=== PATIENT | male | born 2000 | race Caucasian/White ===

== ENCOUNTER 2022-12-17 10:36 | Emergency (ER) | payer BC, SELFPAY ==
--- NOTE | ~2022-12-17 | XR_ITS ---
EXAMINATION: XR hand RT 2V DATE: 12/17/2022 11:45 INDICATION: Laceration to the right index digit TECHNIQUE: Posteroanterior and lateral views of the right hand were obtained. COMPARISON: None. FINDINGS: Alignment is normal. No fracture. Joint spaces are normal. Soft tissues are unremarkable. No soft tis olvin gas or radiopaque foreign bodies. IMPRESSION: 1. No osseous abnormality or radiopaque foreign bodies. Reviewed, dictated and finalized at location A.
[2022-12-17 10:48] VITALS: BP 148/85; PULSE 83; RESP 16; TEMP 36.2; O2SAT 99
[2022-12-17 11:00] VITALS: BP 147/83; PULSE 73; RESP 18; TEMP 36.6; O2SAT 98
--- NOTE | 2022-12-17 11:54 | ED.GENADULT ---
HPI - General Adult General Chief complaint: Wound/Laceration Stated complaint: Right index finger laceration Time Seen by Provider: 12/17/22 11:06 Source: patient Mode of arrival: ambulatory Limitations: no limitations History of Present Illness HPI narrative: This is a 22-year-old male who presents to the ED with chief complaint of right index finger abrasion occurring just prior to arrival. Patient states that he was moving a door when it slipped off the hand and cut his finger. He states he had a tough time controlling the bleeding so he presented to the ER for further evaluation. Denies any numbness or weakness. Denies further site of pain or injury. States tetanus is up-to-date. Related Data Allergies Allergy/AdvReac Type Severity Reaction Status Date / Time No Known Allergies Allergy Verified 12/17/22 11:05 Review of Systems Review of Systems: All systems as dictated in HPI Exam Narrative: GENERAL: Well-appearing, well-nourished, and in no acute distress. HEAD: Normocephalic, atraumatic. EYES: PERRLA and EOMI. ENT: Nares clear, no rhinorrhea or epistaxis. Mucous membranes moist. Oropharynx without tonsillar hypertrophy exudate or other lesions. NECK: Supple. No adenopathy or masses. CHEST: No respiratory distress. Clear to auscultation. No wheezes rales or rhonchi HEART: Regular rate and rhythm. No murmur heard. Normal peripheral pulses. ABDOMEN: Soft, nontender, nondistended, normal active bowel sounds. MSK: Normal range of motion. No edema. Full range of motion of both hands. SKIN: Minor abrasions noted to the dorsum of the right index finger. No active bleeding. Warm, dry, no rash. NEURO: Alert and oriented x3. No focal deficits. PSYCH: Normal mood and affect. Course Vital Signs Vital signs: Vital Signs Temperature 97.2 F L 12/17/22 10:48 Pulse Rate 83 12/17/22 10:48 Respiratory Rate 16 12/17/22 10:48 Blood Pressure 148/85 H 12/17/22 10:48 Pulse Oximetry 99 12/17/22 10:48 Oxygen Delivery Room Air 12/17/22 10:48 Temperature 97.9 F 12/17/22 11:00 Pulse Rate 73 12/17/22 11:00 Respiratory Rate 18 12/17/22 11:00 Blood Pressure 147/83 H 12/17/22 11:00 Pulse Oximetry 98 12/17/22 11:00 Oxygen Delivery Room Air 12/17/22 11:00 Medical Decision Making MDM Narrative Medical decision making narrative: This is a 22-year-old male who presents to the ED with chief complaint of a right index finger injury occurring just prior to arrival. Vitals are normal. Exam reveals several small abrasions to the right index finger. No active bleeding. No gaping wounds that would require primary closure. Tetanus up-to-date. X-rays are negative for any acute findings in the right hand. He was given nonadherent pad and Kerlix dressing. Wound care instructions for home given. Return precautions given. Supportive measures discussed. Patient is understanding and agreeable with plan for discharge and follow-up with PCP. Vital Signs Vital Signs: Vital Signs Temperature 97.2 F L 12/17/22 10:48 Pulse Rate 83 12/17/22 10:48 Respiratory Rate 16 12/17/22 10:48 Blood Pressure 148/85 H 12/17/22 10:48 Pulse Oximetry 99 12/17/22 10:48 Oxygen Delivery Room Air 12/17/22 10:48 Temperature 97.9 F 12/17/22 11:00 Pulse Rate 73 12/17/22 11:00 Respiratory Rate 18 12/17/22 11:00 Blood Pressure 147/83 H 12/17/22 11:00 Pulse Oximetry 98 12/17/22 11:00 Oxygen Delivery Room Air 12/17/22 11:00 Discharge Plan Discharge Clinical Impression: Avulsion of skin Patient Disposition: Home, Self-Care Condition: Stable Instructions: Antibiotic Form, Abrasion (ED) Additional Instructions: Your exam and imaging are reassuring today. No fractures. Please keep the area clean and dry. They have any new or worsening symptoms return to the ER, otherwise take Tylenol and ibuprofen as needed for pain. Follow-up/Referrals: PHYSICIAN NOT
== END 2022-12-17 12:34 | disposition home or self-care (01) ==
PROVIDERS: Emergency Provider Physician Assistant
DX: S60.410A Abrasion of right index finger, initial encounter (principal); Z23 Encounter for immunization; W26.8XXA Contact with other sharp object(s), not elsewhere classified, initial encounter
CPT/HCPCS: 73120; 90471; 99283

== ENCOUNTER 2023-08-21 21:41 | Emergency (ER) | payer BC, SELFPAY ==
[2023-08-21 21:43] VITALS: BP 142/97; PULSE 100; RESP 18; TEMP 36.8; O2SAT 94
--- NOTE | 2023-08-21 21:46 | ED.WOUNDLAC ---
HPI - Wound/Laceration General Chief Complaint: Wound/Laceration Stated Complaint: hand lac Time Seen by Provider: 08/21/23 21:46 Source: patient Mode of arrival: ambulatory Limitations: no limitations History of Present Illness HPI narrative: 23-year-old with 2 cm superficial laceration palmar surface of right thumb at DIP. not lacerated while trying to open a dog food can. no other injuries noted. Up-to-date on tetanus immunization Onset (ago): minute(s) ( 30 minutes ago) Extremity Location: Right: hand Body four view annotation: 1. 2 cm mass duration on the palmar aspect of 1st DI P Patient tetanus UTD: Yes Context: accidental Associated symptoms: none Related Data Home Medications Medication Instructions Recorded Confirmed No Home Medications 08/21/23 08/21/23 Allergies Allergy/AdvReac Type Severity Reaction Status Date / Time No Known Allergies Allergy Verified 12/17/22 11:05 Review of Systems Review of Systems: All systems reviewed & are unremarkable except as noted in HPI and below Exam Const: General: no acute distress Nutritional Appearance: well nourished Orientation/consciousness: patient oriented x3 Limitations: no limitations HENMT: Head: normal to inspection Ears: external ears normal Face/Nose/Sinus: Normal external nose present Face and sinus: normal facial exam Mouth: Yes Normal oral and palatal mucosa present Throat: posterior oropharynx normal Eyes: Conjunctivae: conjunctivae normal Pupils: Equal, round and reactive pupils present EOM: EOMs intact bilaterally Direct Ophthalmoscopy: no photophobia Neck: Neck: normal visual inspection, no lymphadenopathy and no meningeal signs Chest: Chest palpation & inspection: normal inspection of the chest Resp: Effort & Inspection: normal respiratory effort Auscultation: clear to auscultation bilaterally Cardio: Rate: regular rate Rhythm: regular rhythm GI: GI Palp: Yes Soft to palpation Auscultation: normal bowel sounds Back/Spine/Pelvis: Back: no CVA tenderness Skin: General skin exam: normal color Rashes: no rashes Other: 2 cm superficial laceration on palmar aspect of the 1st DI P Neuro: General: patient oriented x3, moves all extremities, no meningeal signs and no focal motor deficits Cranial nerves: Yes Nystagmus not present Speech: normal speech Gait exam (Neuro): Normal gait present Extrem: General: normal to inspection, no clubbing, cyanosis or edema and no pedal edema Psych: Mental Status: mental status grossly normal Affect: normal affect Attitude: cooperative Course Course Emergency Course: finger laceration- 2 cm- glued with Dermabond Vital Signs Vital signs: Vital Signs Temperature 36.8 C 08/21/23 21:43 Pulse Rate 100 08/21/23 21:43 Respiratory Rate 18 08/21/23 21:43 Blood Pressure 142/97 H 08/21/23 21:43 Pulse Oximetry 94 08/21/23 21:43 Oxygen Delivery Room Air 08/21/23 21:43 Temperature 36.8 C 08/21/23 21:43 Pulse Rate 100 08/21/23 21:43 Respiratory Rate 18 08/21/23 21:43 Blood Pressure 142/97 H 08/21/23 21:43 Pulse Oximetry 94 08/21/23 21:43 Oxygen Delivery Room Air 08/21/23 21:43 Procedures Laceration Laceration 1: Date: 08/21/23 Time: 21:58 Site: hand Side (If applicable): right Size (cm): 2 Description: linear Depth: simple, single layer ====== Skin Level ====== Skin layer closed with: dermabond ====== Subcutaneous Layer ====== ====== Muscle Layer ====== ====== Tendon Layer ====== MDM - Wound/Laceration MDM Narrative Medical decision making narrative: finger laceration Differential Diagnosis Differential diagnosis: Likely abrasion Discharge Plan Discharge Clinical Impression: Finger laceration Patient Disposition: Home, Self-Care Condition: Stable Instructions: Antibiotic Form, Skin Adhesive Care (ED) Patient Language: Engl
== END 2023-08-21 22:13 | disposition home or self-care (01) ==
PROVIDERS: Emergency Provider Internal Medicine Critical Care Medicine; PCP Family Medicine
DX: S61.011A Laceration without foreign body of right thumb without damage to nail, initial encounter (principal); W26.8XXA Contact with other sharp object(s), not elsewhere classified, initial encounter
CPT/HCPCS: 12001; 99282